=== PATIENT | male | born 1940 | race Caucasian/White ===

== ENCOUNTER 2017-05-03 08:52 | Outpatient (CLI) | payer MEDICARE | END 2017-05-03 23:59 | disposition home or self-care (01) | LOC: US 08:52 | DX: K80.20 Calculus of gallbladder without cholecystitis without obstruction (principal); N18.3 Chronic kidney disease, stage 3 (moderate); N40.0 Benign prostatic hyperplasia without lower urinary tract symptoms; N28.1 Cyst of kidney, acquired; K57.30 Diverticulosis of large intestine without perforation or abscess without bleeding; K42.9 Umbilical hernia without obstruction or gangrene | CPT/HCPCS: 72128-TC; 76700-TC ==

== ENCOUNTER 2017-09-26 10:12 | Outpatient (CLI) | payer MEDICARE, OTHER ==
[2017-09-26 10:49] LABS: CALCIUM, SERUM 9.5 mg/dL (8.5-10.1); CARBON DIOXIDE 31 mmol/L (21-32); CHLORIDE 105 mmol/L (98-107); CREATININE 1.1 mg/dL (0.6-1.3); GLUCOSE 181 mg/dL (74-106); POTASSIUM 4.7 mmol/L (3.5-5.1); SODIUM SERUM 142 mmol/L (136-145); UREA NITROGEN, BLOOD 15 mg/dL (7-18)
[2017-09-26 11:03] LABS: URIC ACID 4.2 mg/dL (2.6-7.2)
== END 2017-09-26 23:59 | disposition home or self-care (01) ==
LOC: LAB 10:12
DX: E11.22 Type 2 diabetes mellitus with diabetic chronic kidney disease (principal); N18.3 Chronic kidney disease, stage 3 (moderate)
CPT/HCPCS: 36415; 80048-TC; 84439-TC; 84443-TC; 84550-TC

== ENCOUNTER 2017-12-14 10:24 | Outpatient (CLI) | payer MEDICARE, OTHER ==
[2017-12-14 11:25] LABS: ALANINE AMINOTRANSFERASE 24 U/L (12-78); ALKALINE PHOSPHATASE 58 U/L (46-116); ASPARTATE AMINOTRANSFERASE 22 U/L (15-37); BILIRUBIN,TOTAL 0.7 mg/dL (0.2-1.0); CALCIUM, SERUM 9.6 mg/dL (8.5-10.1); CARBON DIOXIDE 28 mmol/L (21-32); CHLORIDE 106 mmol/L (98-107); CREATININE 1.1 mg/dL (0.6-1.3); GLUCOSE 106 mg/dL (74-106); POTASSIUM 4.9 mmol/L (3.5-5.1); SODIUM SERUM 142 mmol/L (136-145); TOTAL PROTEIN, SERUM 7.5 g/dL (6.4-8.2); UREA NITROGEN, BLOOD 25 mg/dL (7-18)
[2017-12-14 11:33] LABS: CHOLESTEROL 201 mg/dL (<200); HDL CHOLESTEROL 72 mg/dL (40-60); LDL 123 mg/dL (0-99); THYROID STIMULATING HORMONE 2.988 uIU/mL (0.358-3.74); TRIGLYCERIDES 35 mg/dL (30-150)
== END 2017-12-14 23:59 | disposition home or self-care (01) ==
LOC: LAB 10:24
DX: I13.0 Hypertensive heart and chronic kidney disease with heart failure and stage 1 through stage 4 chronic kidney disease, or unspecified chronic kidney disease (principal); E11.22 Type 2 diabetes mellitus with diabetic chronic kidney disease; N18.3 Chronic kidney disease, stage 3 (moderate); I50.9 Heart failure, unspecified
CPT/HCPCS: 36415; 80053-TC; 80061-TC; 84439-TC; 84443-TC